=== PATIENT | female | born 1985 | race Caucasian/White ===

== ENCOUNTER 2025-01-13 17:10 | Emergency (ER) | payer OTHER, SELFPAY ==
--- NOTE | ~2025-01-13 | XR_ITS ---
XR finger 2nd RT min 2V 01/13/2025 17:32 INDICATION: Right second finger pain PROCEDURE: 3 views right second finger COMPARISON: No prior studies for comparison. FINDINGS: Fracture, dislocation or subluxation is not identified. The soft tissues appear within normal limits. No foreign bodies are identified. IMPRESSION: 1: NO ACUTE BONE OR JOINT ABNORMALITY IDENTIFIED. Reviewed, dictated and finalized at location O.
--- OUTSIDE RECORDS SUMMARY | 2025-01-13 17:13 | XMS_ITS | Clinical Summary ---
Author Organization [facility] [place] Address [address] [place] [address] Phone Care Team Providers Care Backer Up Name Role Phone Harry Landaverde MD Primary Care Provider [phone] Medications celecoxib (CeleBREX) 200 MG Capsule TAKE 1 CAPSULE BY MOUTH DAILY WITH FOOD 11/17/2023 Active fluconazole (DIFLUCAN) 150 MG Tablet Take 150 mg by mouth once. 01/21/2024 Active triamcinolone (KENALOG) 0.1 % Cream Apply to rash area bid for 10 days 15 g 10/14/2024 Active escitalopram (LEXAPRO) 10 MG Tablet Take 1 Tablet by mouth daily. 30 Tablet 3 11/19/2024 Active hydrOXYzine (ATARAX) 10 MG Tablet Take 1 Tablet by mouth every 8 hours as needed for Anxiety. 30 Tablet 11/19/2024 Active phentermine 30 MG CapsuleIndicati ons:Obesity (BMI 30-39.9) Take 1 Capsule by mouth daily. 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 Carpal tunnel syndrome, right 03/29/2023 Right elbow pain 11/30/2022 Generalized anxiety disorder 07/20/2022 Encounters Date Type Department Care Team Description 11/19/2024 11:00 AM CDT Office Visit [facility] Medical Group - Internal Medicine - [place] [address] [place] [address] Harry Landaverde MD Obesity (BMI 30-39.9) (Primary Dx); Other hyperlipidemia; Generalized anxiety disorder Discharge Disposition: Discharged to home or Selfcare 11/19/2024 Travel 10/22/2024 1:02 PM CDT - 10/22/2024 11:59 PM CDT Hospital Encounter [facility] Ultrasound [address] [place] [address] Harry Landaverde MD Discharge Disposition: Discharged to home or Selfcare 10/22/2024 Travel 10/22/2024 Results Follow-Up [facility] Internal Medicine [facility] [address] [place] [address] Ramona Wallace PAC HEMOGLOBIN A1C W/ ESTIMATED GLUCOSE, THYROID STIMULATING HORMONE (TSH), THYROXINE (T4) FREE, Additional followed-up results: 3 10/14/2024 11:00 AM CDT Office Visit [facility] Internal Medicine [facility] [address] [place] [address] Harry Landaverde MD Obesity (BMI 30-39.9) (Primary Dx); Health maintenance examination (Adult); Hyperglycemia; Goiter; Rash Discharge Disposition: Discharged to home or Selfcare 10/14/2024 Travel from Last 3 Months Family History Medical History Relation Name Comments No Known Problems Brother Cancer Father No Known Problems Mother Relation Name Status Comments Brother Alive Father Mother Alive Social History Tobacco Use Types Packs/Day Years Used Date Smoking Tobacco: Every Day Cigarettes Passive Smoke Exposure: Current Smokeless Tobacco: Never Tobacco Cessation:Ready to Q uit: No; Counseling Given: Yes Alcohol Use Standard Drinks/Week Comments Not Currently 0 (1 standard drink = 0.6 oz pur e alcohol) [facility] Utilities Answer Date Recorded In the past 12 months has [employer], gas, oil, or water [employer] [place] threatened to shut off services in your home? No 07/19/2023 Social Connection and Isolation Panel Answer Date Recorded In a typical week, how many times do you talk on the phone with family, friends, or neighbors? More than three times a week 07/19/2023 How often do you get togethe r with friends or relatives? More than three times a week 07/19/2023 How often do you attend chur ch or orthodox services? Never 07/19/2023 Do you belong to any clubs o r organizations such as pentecostal groups, unions, fraternal or athletic groups, or school groups? No 07/19/2023 How often do you attend meet ings of the clubs or organizations you belong to? Never 07/19/2023 Are you , , di vorced, , never , or living with a partner? Living with partner 07/19/2023 AUDIT-C Answer Date Recorded Q1: How often do you have a drink containing alcohol? Never 07/19/2023 Q2: How many drinks containi ng alcohol do you have on a typical day when you are drinking? Patient does not drink Q3: How often do you have si x or more drinks on one occasion? Never 07/19/2023 Overall Financial Resource Strain (CARDIA) Answe r Date Recorded How hard is it for you to pa y for the very basics like food, housing, medical care, and heating? Not hard at all 07/19/2023 PHQ-2 Answer Date Recorded Total Score - Questions 1-9 0 0607/2024 [facility] - Occupational Stress Questionnaire Answer Date Recorded Do you feel stress - tense, restless, nervous, or anxious, or unable to sleep at night because your mind is troubled all the time - these days? Not at all 07/19/2023 Exercise Vital Sign Answer Date Recorde d On average, how many days pe r week do you engage in moderate to strenuous exercise (like a brisk walk)? 0 days 07/19/2023 On average, how many minutes do you engage in exercise at this level? 0 min 07/19/2023 Hunger Vital Sign Answer Date Recorded Within the past 12 months, y ou worried that your food would run out before you got the money to buy more. Never true 07/19/19 24 Within the past 12 months, t he food you bought just didn't last and you didn't have money to get more. Never true 07/19/2023 PRAPARE - Transportation Answer Date Re corded In the past 12 months, has l ack of transportation kept you from medical appointments or from getting medications? No 11/2023 In the past 12 months, has l ack of transportation kept you from meetings, work, or from getting things needed for daily living? No 07/19/2023 Housing Stability Vital Sign Answer Odell e Recorded In the last 12 months, was t here a time when you were not able to pay the mortgage or rent on time? No 07/19/2023 In the last 12 months, how many places have you lived? 3 07/19/2023 In the last 12 months, was t here a time when you did not have a steady place to sleep or slept in a residential (including now)? No 07/19/2023 Education Answer Date Recorded What is the highest level of school you have completed or the highest degree you have received? 10th grade 07/20/2022 Sexually Active Control Partners Comments Not Currently Comments No Sex and Gender Information Value Date Recorded Sex Assigned at Female 04/25/2023 2:10 PM CHISELER HEAD Legal Sex Female 4:27 PM CHISELER HEAD Gender Identity Female 04/25/2023 2:10 PM CHISELER HEAD Sexual Orientation Choose not to disclose 2022 2:10 PM CHISELER HEAD Last Filed Vital Signs Vital Sign Reading Time Taken Comments Blood Pressure 116/68 11/19/2024 10:55 AM CDT Pulse 90 11/19/2024 10:55 AM CDT Temperature 36.7 C (98.1 F) 11/19/2024 10:55 AM CDT Respiratory Rate 12 02/14/2024 8:13 AM CDT Oxygen Saturation 97% 11/19/2024 10:55 AM CDT Inhaled Oxygen Concentration - - Weight 74.4 kg (164 lb) 11/19/2024 10:55 AM CDT Height 154.9 cm (5' 1) 11/19/2024 10:55 AM CDT Body Mass Index 30.99 11/19/2024 10:55 AM CDT Plan of Treatment Health Maintenance Due Date Last Done Comments Hepatitis C Virus (HCV) Screening 1985 TdaP Immunization 1983 Hepatitis B Immunization (1 of 3 - 19+ 3-dose series) 09/01/2002 Human Papillomavirus (HPV) Immunization (1 - 3-dose SCDM series) 09/01/2010 SARS-COV-2 Immunization ( season) 2024 08/27/2020, 07/30/2020 Mammogram 04/15/2025 04/15/2024 Pap Smear 01/17/2027 01/18/2024 Cervical Cancer Screening (CCS) 01/17/2029 HPV/Cotest 01/17/2029 01/18/2024 Respiratory Syncytial Virus (RSV) Immunization (Adult) (1 - 1-dose 75+ series) 09/01/2058 Discussion re Starting/Frequency of Mammograms Completed 04/15/2024 Influenza Immunization Discontinued Meningococcal Immunization (ACWY) Aged Out No longer eligible based on patient's age to complete this topic Pneumococcal Immunization Combined Discontinued Rotavirus Immunization Aged Out No lo nger eligible based on patient's age to complete this topic Interventions Community Resource Recommendations Community Resource Services Recommended Domains Addressed Status Status Reason/Outcome Date/Time [facility] Nursing Assistant Housing, Public Housing, Residential Housing Housing Stability Recommended 03/26/2024 10:39 PM CHISELER HEAD from Last 12 Months Procedures Procedure Name Priority Date/Time Associated Diagnosis Comments US THYROID Routine 10/22/2024 1:17 PM CDT Goiter CMP (COMPREHENSIVE METABOLIC PANEL) Routine 10/15/2024 Health maintenance examination (Adult) LIPID PANEL Routine 10/15/2024 Health maintenance examination (Adult) THYROXINE (T4) FREE Routine 10/15/2024 Goiter THYROID STIMULATING HORMONE (TSH) Routine 10/15/2024 Goiter HEMOGLOBIN A1C W/ ESTIMATED GLUCOSE Routine 10/15/2024 Hyperglycemia ANTONIA SCREENING BILATERAL DIGITAL W CAD W OTIS Routine 04/15/2024 12:31 PM CHISELER HEAD Encounter for screening mammogram for malignant neoplasm of breast HUMAN PAPILLOMA VIRUS (HPV) Routine 01/18/2024 2:22 PM CDT Screening for malignant neoplasm of cervix PATHOLOGY CYTOLOGY VESSEL ORDINARY SEAMAN Routine 01/18/2024 2:22 PM CDT Screening for malignant neoplasm of cervix from Last 3 Months or Most Recently Relevant to Health Maintenance Results * US THYROID (10/22/2024 1:17 PM CDT) Anatomical Region Laterality Modality BODY N/A Ultrasound 11/03/2024 11:3 1 AM CDT Impressions 11/03/2024 11:33 AM CDT IMPRESSION: Unremarkable appearance of the thyroid. No concerning thyroid nodule. ACR TI-RADS Risk Category: Not applicable. REFERENCE: According to the ACR Thyroid Imaging, Reporting and Data System (TI-RADS): White Paper of the ACR TI-RADS Committee Sep, 2016 recommendations regarding the management of thyroid nodules are as follows: 1. TI-RADS 1: Risk of malignancy <2%, no FNA or follow up required. 2. TI-RADS 2: Risk of malignancy <2%, no FNA or follow up required. 3. TI-RADS 3: Risk of malignancy 2%-5%. Nodules 1.5 cm or greater follow up at 1, 3 and 5 years recommended, for nodules 2.5 cm or greater FNA recommended. 4. TI-RADS 4: Risk of malignancy 5%-20% Nodules 1.0 cm or greater follow up at 1, 2, 3 and 5 years recommended, for nodules 1.5 cm or greater FNA recommended 5. TI-RADS 5: Risk of malignancy >20%. Nodules 0.5 cm or greater annual follow up for 5 years recommended, for nodules 1.0 cm or greater FNA recommended. The ACR TI-RADS committee recommends targeting no more than two nodules for FNA. If three or more nodules meet criteria for FNA, the two with the most suspicious appearance based on ACR TI-RADS points should be sampled. Narrative 11/03/2024 11:33 AM CDT EXAM DESCRIPTION: US THYROID REASON FOR STUDY: goiter TECHNIQUE: Ultrasound of the thyroid was performed with grayscale and color doppler. COMPARISON: None. FINDINGS: RIGHT: Measures 4.8 x 1.5 x 1.9 cm. Normal echotexture. Small subcentimeter cysts. No discrete measurable nodule. LEFT: Measures 4.0 x 1.2 x 1.6 cm. Normal echotexture. No discrete measurable nodule. ISTHMUS: Measures 0.2 cm in AP dimension. Normal echotexture. VASCULARITY: Normal. OTHER: No other significant finding. THIS IS AN ELECTRONICALLY VERIFIED FINAL REPORT 11/03/2024 11:31 AM - Electronically signed by Mandeep Fernandez M.D. NS: NS Report ID: [id number] Reading Location: [id number] Procedure Note Mandeep Fernandez MD - 11/03/2024 EXAM DESCRIPTION: US THYROID REASON FOR STUDY: goiter TECHNIQUE: Ultrasound of the thyroid was performed with grayscale and color doppler. COMPARISON: None. FINDINGS: RIGHT: Measures 4.8 x 1.5 x 1.9 cm. Normal echotexture. Small subcentimeter cysts. No discrete measurable nodule. LEFT: Measures 4.0 x 1.2 x 1.6 cm. Normal echotexture. No discrete measurable nodule. ISTHMUS: Measures 0.2 cm in AP dimension. Normal echotexture. VASCULARITY: Normal. OTHER: No other significant finding. THIS IS AN ELECTRONICALLY VERIFIED FINAL REPORT 11/03/2024 11:31 AM - Electronically signed by Mandeep Fernandez M.D. NS: NS Report ID: [id number] Reading Location: [id number] IMPRESSION: Unremarkable appearance of the thyroid. No concerning thyroid nodule. ACR TI-RADS Risk Category: Not applicable. REFERENCE: According to the ACR Thyroid Imaging, Reporting and Data System (TI-RADS): White Paper of the ACR TI-RADS Committee Sep, 2016 recommendations regarding the management of thyroid nodules are as follows: 1. TI-RADS 1: Risk of malignancy <2%, no FNA or follow up required. 2. TI-RADS 2: Risk of malignancy <2%, no FNA or follow up required. 3. TI-RADS 3: Risk of malignancy 2%-5%. Nodules 1.5 cm or greater follow up at 1, 3 and 5 years recommended, for nodules 2.5 cm or greater FNA recommended. 4. TI-RADS 4: Risk of malignancy 5%-20% Nodules 1.0 cm or greater follow up at 1, 2, 3 and 5 years recommended, for nodules 1.5 cm or greater FNA recommended 5. TI-RADS 5: Risk of malignancy >20%. Nodules 0.5 cm or greater annual follow up for 5 years recommended, for nodules 1.0 cm or greater FNA recommended. The ACR TI-RADS committee recommends targeting no more than two nodules for FNA. If three or more nodules meet criteria for FNA, the two with the most suspicious appearance based on ACR TI-RADS points should be sampled. us Harry Landaverde MD IMG US ORDERABLES Final Res ult * HEMOGLOBIN A1C W/ ESTIMATED GLUCOSE (10/15/2024) Blood 10/15/2024 Result [facility] us Harry Landaverde MD CHEMISTRY ORDERABLES Final Result * THYROXINE (T4) FREE (10/15/2024) Blood 10/15/2024 Result [facility] us Harry Landaverde MD CHEMISTRY ORDERABLES Final Result * THYROID STIMULATING HORMONE (TSH) (10/15/2024) Blood 10/15/2024 Result [facility] us Harry Landaverde MD CHEMISTRY ORDERABLES Final Result * LIPID PANEL (10/15/2024) Blood 10/15/2024 Result [facility] us Harry Landaverde MD CHEMISTRY ORDERABLES Final Result * CMP (COMPREHENSIVE METABOLIC PANEL) (10/15/2024) Blood 10/15/2024 us Harry Landaverde MD CHEMISTRY ORDERABLES Final Result * ANTONIA SCREENING BILATERAL DIGITAL W CAD W OTIS (04/15/2024 12:31 PM CHISELER HEAD) Anatomical Region Laterality Modality breast Bilateral Mammography 04/15/2024 12:3 2 PM CHISELER HEAD Narrative 04/16/2024 2:04 PM CHISELER HEAD - ANTONIA SCREENING BILATERAL DIGITAL W CAD W OTIS BILATERAL DIGITAL SCREENING MAMMOGRAM 3D/2D WITH CAD WITH MEDIOLATERAL OBLIQUE CRANIOCAUDAL: 04/15/2024 The study was acquired using digital technology and interpreted from soft copy. Current study was also evaluated with [employer] version 7.2. 2D digital mammographic views, as well as 3D digital tomosynthesis were performed in the CC and MLO projections. CLINICAL: Baseline screening. Post breast imaging, patient reported a chronic right knot for a couple years located at lateral ribs. This area seemed to be out of the field of view of mammography. Patient states her physician is aware of this knot. No personal history of breast cancer. Maternal aunt had breast cancer. Possible breast cancer of mother. COMPARISONS: No prior exams were available for comparison. BREAST TISSUE:The breasts are heterogeneously dense, which may obscure small masses. FINDINGS: There are benign calcifications in both breasts. No significant masses, calcifications, or other findings are seen in either breast. IMPRESSION: BENIGN There is no mammographic evidence of malignancy. A 1 year screening mammogram is recommended. A letter will be sent to the patient with these results. The patient will be entered into a reminder system with a target due date of 1 year for her next screening exam. Electronically signed by: Madhuri funez/carmelo:04/15/2024 22:19:27 Direct Support Staff Member(s): RT Ana Luisa(R)(M), [facility] letter sent: Normal Exam Reading location: [facility] Mammogram BI-RADS: Category 2: Benign Procedure Note Madhuri Mckeon MD - 04/16/2024 - ANTONIA SCREENING BILATERAL DIGITAL W CAD W OTIS BILATERAL DIGITAL SCREENING MAMMOGRAM 3D/2D WITH CAD WITH MEDIOLATERAL OBLIQUE CRANIOCAUDAL: 04/15/2024 The study was acquired using digital technology and interpreted from soft copy. Current study was also evaluated with IC[employer] version 7.2. 2D digital mammographic views, as well as 3D digital tomosynthesis were performed in the CC and MLO projections. CLINICAL: Baseline screening. Post breast imaging, patient reported a chronic right knot for a couple years located at lateral ribs. This area seemed to be out of the field of view of mammography. Patient states her physician is aware of this knot. No personal history of breast cancer. Maternal aunt had breast cancer. Possible breast cancer of mother. COMPARISONS: No prior exams were available for comparison. BREAST TISSUE:The breasts are heterogeneously dense, which may obscure small masses. FINDINGS: There are benign calcifications in both breasts. No significant masses, calcifications, or other findings are seen in either breast. IMPRESSION: BENIGN There is no mammographic evidence of malignancy. A 1 year screening mammogram is recommended. A letter will be sent to the patient with these results. The patient will be entered into a reminder system with a target due date of 1 year for her next screening exam. Electronically signed by: Madhuri funez/carmelo:04/15/2024 22:19:27 Direct Support Staff Member(s): RT Ana Luisa(R)(M), [facility] letter sent: Normal Exam Reading location: [facility] Mammogram BI-RADS: Category 2: Benign us Carlotta Mendenhall APRN, [facility]MO IMG MAMMO ORDERABLES Fin al Result * PATHOLOGY CYTOLOGY VESSEL ORDINARY SEAMAN (01/18/2024 2:22 PM CDT) SPECIMEN ADEQUACY Satisfactory for evaluation. Endocervical/transf ormation zone component is present. 01/23/2024 3:00 PM CDT [facility] DESCRIPTIVE DIAGNOSIS NEGATIVE FOR INTRAEPITHELIAL LESIONS OR MALIGNANCY. 01/23/2024 3:00 PM CDT [facility] at 1500 CDT Automated Examination Analysis of this sample has been assisted by an automated imaging and review system ([employer] System, [employer], [place], [place]). This case is further evaluated and finalized by a road train driver and/or pathologist. 01/23/2024 3:00 PM CDT [facility] Disclaimer The PAP smear is a screening test designed to detect cancerous or precancerous cells of the uterine cervix. It is one of the best means available for detection of cervical cancer but still carries an inherent false-negative rate. The consequences of a false-negative PAP result can be minimized by adhering to current screening guidelines. The following are general guidelines recommended by the ACS, ASCP, ASCCP, and ACOG: PAP testing is recommended every three years for women 21-29, Co-Testing, a PAP test in conjunction with an HPV (Human Papillomavirus) test for women ages 30-65, and no PAP or HPV testing for women under the age of 21 or older than 65 unless clinically indicated. 01/23/2024 3:00 PM CDT [facility] Case Report Gynecologic Cytology Report Case: [id number] Authorizing Provider: Carlotta Mendenhall APRN, CNP Collected: 01/18/2024 02:22 PM Ordering Location: [facility] - Received: 01/18/2024 02:22 PM Internal Medicine [facility] Screen: Lucille Rivera Specimen: TP Screen, Cervix/Endocervix 01/23/2024 3:00 PM CDT [facility] Other CERVIX UTERI STRUCTURE / Unknown Non-Phlebotomy Collection / Unknown 01/18/2024 2:22 PM CDT 01/18/2024 2:22 PM CDT us Carlotta Mendenhall APRN, CNP PATHOLOGY/CYTOLOGY ORDER YOU Final Result [facility] [address] [place] [address], * HUMAN PAPILLOMA VIRUS (HPV) (01/18/2024 2:22 PM CDT) HPV TYPE 16 NEGATIVE NEGATIVE 01/21/2024 7:47 PM CDT [facility] Comment: A negative high-risk HPV result does not exclude the possibility of future cytologic HSIL or underlying CIN2-3 or cancer. The presence of PCR inhibitors may cause false negative or invalid results. If concentrations of whole blood in the sample exceed 10% (dark red or brown coloration) in PreservCyt solution, there is a likelihood of obtaining a false-negative result. HPV TYPE 18 NEGATIVE NEGATIVE 01/21/2024 7:47 PM CDT [facility] Comment: A negative high-risk HPV result does not exclude the possibility of future cytologic HSIL or underlying CIN2-3 or cancer. The presence of PCR inhibitors may cause false negative or invalid results. If concentrations of whole blood in the sample exceed 10% (dark red or brown coloration) in PreservCyt solution, there is a likelihood of obtaining a false-negative result. HPV OTHER HIGH RISK TYPES, PCR NEGATIVE NEGATIVE 01/21/2024 7:47 PM CDT [facility] Comment: The following Other High Risk types were not detected: 31, 33, 35, 39, 45, 51, 52, 56, 58, 59, 66, and 68. A negative high-risk HPV result does not exclude the possibility of future cytologic HSIL or underlying CIN2-3 or cancer. The presence of PCR inhibitors may cause false negative or invalid results. If concentrations of whole blood in the sample exceed 10% (dark red or brown coloration) in PreservCyt solution, there is a likelihood of obtaining a false-negative result. HPV ORDER BE USED FOR SCREENING OR DIAGNOSTIC SCREENING 01/21/2024 7:47 PM CDT [facility] Other Non-Phlebotomy Collection / Unknown 01/18/2024 2:22 PM CDT 01/18/2024 2:22 PM CDT Narrative [facility] - 01/21/2024 7:47 PM CDT This test was performed using LUCILLE 5800 Real Time PCR. us Carlotta Mendenhall FELTMAKER, HOIST WORKER LAB SEND OUTS Final Re sult [facility] [address] [place] [address], [facility] [place] [address] from Last 3 Months or Most Recently Relevant to Health Maintenance Insurance Care Teams Backer Up Relationship Specialty Start Date End Date Harry Landaverde MD PCP - General Internal Medicine 07/20/22
--- OUTSIDE RECORDS SUMMARY | 2025-01-13 17:13 | XMS_ITS | Clinical Summary ---
Author Organization [facility] [employer] Address [address] [place] [address] Care Team Providers Care Filter Press Tender Name Role Phone Lionel Perez MD Primary Care Provider [phone] Source Comments [facility],non-owned Affiliates and Associated Physician Practices is amultiple site organization consisting of ambulatory clinics and hospital sitesin [place], [place], [place] and [place]. This disclosure is being madepursuant to the Care Everywhere program and may not contain all information available regarding this patient. Last updated 18.[facility] [employer] Social History Tobacco Use Types Packs/Day Years Used Date Smoking Tobacco: Never Assessed Comments Unknown Sex and Gender Information Value Date Recorded Sex Assigned at Not on file Legal Sex Female 12:18 PM LURER Gender Identity Not on file Sexual Orientation Not on file Plan of Treatment Health Maintenance Due Date Last Done Comments LIPID TESTING 1985 MAMMOGRAM 1985 HIV SCREENING 09/01/1998 HEPATITIS C SCREENING 08/28/2001 DTAP/TDAP/TD VACCINES (1 - Tdap) 09/01/2002 HEPATITIS B VACCINE (1 of 3 - 19+ 3-dose series) 09/01/2002 HPV VACCINE (1 - 3-dose SCDM series) 09/01/2010 DEPRESSION SCREENING 05/14/2024 COVID-19 VACCINE (1 - 2023-2 5 season) 2025 INFLUENZA VACCINE (#1) 2025 ZOSTER VACCINE (1 of 2) 09/01/2033 HIB VACCINE Aged Out No longer eligi ble based on patient's age to complete this topic MENINGOCOCCAL (Group B) VACC INE SHARED DECISION-MAKING Aged Out No longer eligibl e based on patient's age to complete this topic MENINGOCOCCAL GROUPS A/C/Y/W VACCINE Aged Out No longer eligible b ased on patient's age to complete this topic PNEUMOCOCCAL VACCINE Aged Out No long er eligible based on patient's age to complete this topic Care Teams Filter Press Tender Relationship Specialty Start Date End Date iLonel Perez MD [address] [place] [address] Dr Bernardo [address] [place] [id number] PCP - General 02/08/11
--- OUTSIDE RECORDS SUMMARY | 2025-01-13 17:13 | XMS_ITS | Encounter Summary ---
Author Organization [facility] Address [address] [place] [place] [address] Phone Care Team Providers Care Paint Roller Covermaker Name Role Phone Harry Landaverde MD Primary Care Provider [phone] Reason for Referral * Radiology Services (Routine) - Closed Specialty Diagnoses / Procedures Referred By Sherry rdz Referred To Contact Radiology Diagnoses Pre-op testing Procedures XR CHEST 2 VIEWS Navjot Owens MD [address] [place] [address] Phone: tel: fax: Referral ID Status Reason Start Date Expiration Date Visits Re quested Visits Authorized [id number] Closed 04/25/2023 1 1 UCK DIVER Encounter Details Date Type Department Care Team (Latest Contact Info) Description 04/25/2023 Transcribe Orders [facility] Preop/Pacu II 1 [place] [id number] Navjot Owens MD [address] [place] [id number] Pre-op testing (Primary Dx) Social History Tobacco Use Types Packs/Day Years Used Date Smoking Tobacco: Every Day Cigarettes Passive Smoke Exposure: Current Smokeless Tobacco: Never Alcohol Use Standard Drinks/Week Comments Not Currently 0 (1 standard drink = 0.6 oz pur e alcohol) PHQ-2 Answer Date Recorded Total Score - Questions 1-9 0 02/12 Education Answer Date Recorded What is the highest level of school you have completed or the highest degree you have received? 10th grade 07/20/2022 Sexually Active Control Partners Comments Not Currently Comments No Sex and Gender Information Value Date Recorded Sex Assigned at Female 04/25/2023 2:10 PM GEODUCK DIVER Legal Sex Female 4:27 PM GEODUCK DIVER Gender Identity Female 04/25/2023 2:10 PM GEODUCK DIVER Sexual Orientation Choose not to disclose 2022 2:10 PM GEODUCK DIVER documented as of this encounter Plan of Treatment Not on file documented as of this encounter Results * XR CHEST 2 VIEWS (04/26/2023 1:21 PM GEODUCK DIVER) Anatomical Region Laterality Modality Chest N/A Digital Radiogra phy 04/27/2023 12:4 4 PM GEODUCK DIVER Impressions 04/27/2023 12:46 PM GEODUCK DIVER IMPRESSION: No acute cardiopulmonary abnormality. Narrative 04/27/2023 12:46 PM GEODUCK DIVER EXAM DESCRIPTION: XR CHEST 2 VIEWS REASON FOR STUDY: pre op ulnar nerve on rt wrist TECHNIQUE: Frontal and lateral radiographic view(s) of the chest. COMPARISON: None. FINDINGS: LUNGS: No focal opacity, pleural effusion, or pneumothorax. HEART/MEDIASTINUM: Cardiac silhouette normal in size. Mediastinal and hilar contours appear normal. LINES/TUBES: None. BONES: No acute osseous abnormality. THIS IS AN ELECTRONICALLY VERIFIED FINAL REPORT 04/27/2023 12:44 PM - Electronically signed by Hunter Cloud M.D. CH: Report ID: [id number] Reading Location: [id number] Procedure Note Hunter Cloud Jr., MD - 04/27/2023 EXAM DESCRIPTION: XR CHEST 2 VIEWS REASON FOR STUDY: pre op ulnar nerve on rt wrist TECHNIQUE: Frontal and lateral radiographic view(s) of the chest. COMPARISON: None. FINDINGS: LUNGS: No focal opacity, pleural effusion, or pneumothorax. HEART/MEDIASTINUM: Cardiac silhouette normal in size. Mediastinal and hilar contours appear normal. LINES/TUBES: None. BONES: No acute osseous abnormality. THIS IS AN ELECTRONICALLY VERIFIED FINAL REPORT 04/27/2023 12:44 PM - Electronically signed by Hunter Cloud M.D. CH: Report ID: [id number] Reading Location: [place] [address] IMPRESSION: No acute cardiopulmonary abnormality. Navjot Owens MD IMG DIAGNOSTIC ORDERABLES Final Result * (ABNORMAL) CMP (COMPREHENSIVE METABOLIC PANEL) (04/26/2023 12:47 PM GEODUCK DIVER) SODIUM 136 136 - 145 mmol/L 04/26/2023 1:42 PM [facility] POTASSIUM 3.9 3.5 - 5.1 mmol/L 04/26/2023 1:42 PM [facility] CHLORIDE 104 98 - 107 mmol/L 04/26/2023 1:42 PM [facility] CO2, VENOUS 24 22 - 30 mmol/L 04/26/2023 1:42 PM [facility] ANION GAP 11.9 <18.0 mmol/L 04/26/2023 1:42 PM [facility] GLUCOSE 103(H) 70 - 99 mg/dL 04/26/2023 1:42 PM [facility] BUN 9 5 - 18 mg/dL 04/26/2023 1:42 PM [facility] CREATININE, BLOOD 0.68 0.60 - 1.00 mg/dL 04/26/2023 1:42 PM [facility] BUN/CREATININE RATIO 13 12 - 20 ratio 04/26/2023 1:42 PM [facility] TOTAL PROTEIN 7.1 6.3 - 8.2 g/dL 04/26/2023 1:42 PM [facility] ALBUMIN 4.2 3.5 - 5.0 g/dL 04/26/2023 1:42 PM [facility] A/G RATIO 1.4 1.0 - 2.2 04/26/2023 1:42 PM [facility] CALCIUM 9.0 8.7 - 10.5 mg/dL 04/26/2023 1:42 PM GEODUCK DIVER [facility] T BILI 0.4 0.2 - 1.2 mg/dL 04/26/2023 1:42 PM GEODUCK DIVER [facility] SGOT (AST) 15 5 - 34 U/L 04/26/2023 1:42 PM GEODUCK DIVER [facility] SGPT (ALT) 16 0 - 55 U/L 04/26/2023 1:42 PM GEODUCK DIVER [facility] ALKALINE PHOSPHATASE 62 40 - 150 U/L 04/26/2023 1:42 PM GEODUCK DIVER [facility] IS THE PATIENT REQUIRED TO BE FASTING? No 04/26/2023 1:42 PM GEODUCK DIVER [facility] GFR, ESTIMATED >60 >=60 04/26/2023 1:42 PM [facility] Comment: Creatinine Clearance is the preferred criteria for selecting drug dose adjustments in renally impaired patients. The GFR is provided as additional pertinent clinical information. GFR is reported in mL/min/1.73 sq m. Calculation based on the Chronic Kidney Disease Epidemiology Collaboration (CKD- EPI) equation refit without adjustment for race. GFR, EST. >60 >=60 023 1:42 PM GEODUCK DIVER [facility] GFR, EST. NONAFRICAN >60 >=60 04/26/2023 1:42 PM [facility] Blood Venipuncture / Unknown 04/26/2023 12:47 PM GEODUCK DIVER 04/26/2023 1:22 PM GEODUCK DIVER us Navjot Owens MD CHEMISTRY ORDERABLES Final Resul t [facility] [place] [address] documented in this encounter Visit Diagnoses Diagnosis Pre-op testing- Primary Preoperative examination, unspecified Pre-op testing Preoperative examination, unspecified documented in this encounter Additional Health Concerns Assessment Noted Time PHQ-9 Depression Total Score: 0 10/26/20 23 1:39 PM CDT documented as of this encounter Care Teams Paint Roller Covermaker Relationship Specialty Start Date End Date Harry Landaverde MD PCP - General Internal Medicine 07/20/22 documented as of this encounter
--- NOTE | 2025-01-13 17:17 | ED.UPPEXIN ---
HPI - Extremity Injury (Upper) General Chief Complaint: Extremity Injury, Upper Stated Complaint: right finger injury Time Seen by Provider: 01/13/25 17:20 Source: patient Mode of arrival: ambulatory Limitations: no limitations History of Present Illness HPI narrative: Светлана is a 39-year-old female patient presenting to the clinic today with complaints of right index finger injury. She reports she injured it on January 01 when she tripped in the kitchen and hit her finger on the cabinet. Had bruising and swelling over the PIP joint. Has been wearing a splint. States the area is still sore so she wanted to have it looked at to see if it was broken. Is able to flex and extend the finger with very mild pain with full flexion. Related Data Home Medications ?Medication ?Instructions ?Recorded ?Confirmed ?Last Taken ?Type celecoxib 200 mg capsule mg 01/13/25 Unknown History escitalopram oxalate 10 mg tablet mg 01/13/25 Unknown History hydroxyzine HCl 10 mg tablet mg 01/13/25 Unknown History Allergies Allergy/AdvReac Type Severity Reaction Status Date / Time No Known Allergies Allergy Unverified 11/01/15 17:39 Review of Systems Review of Systems: Pertinent positives per HPI. Patient denies any fever, chills, rash, headache, visual changes, dizziness, cough, runny nose, sore throat, shortness of breath, chest pain, palpitations, nausea, vomiting, diarrhea, constipation, abdominal pain, or any urinary issues. PMFSH Comments At the time of my signature, I reviewed and agree with the nursing past medical, surgical, social, and family history. There is no relevant family history pertinent to the patient complaint. Exam Narrative: General: Well-developed, well nourished, in no apparent distress Head: Normocephalic, atraumatic. Cardio: Regular rate and rhythm, s1 and s2 normal, no murmur appreciated. Resp: Clear to auscultation bilaterally, no rhonchi, rales, wheezing or rubs. Musculoskeletal: No deformity, mild bruising/swelling noted to the right PIP joint of the 2nd finger, mild tender to palpation, mild pain with full flexion of the finger, grossly normal range of motion, muscle strength strong and equal, peripheral pulse strong, no edema, no cyanosis, normal gait and station Course Course Emergency Course: Portions of this record may have been created with voice recognition software. Level of Care: [facility] Care Visit Vital Signs Vital signs: Vital signs reviewed MDM - Extremity Injury (Upper) MDM Narrative Medical decision making narrative: At the time of visit patient is resting comfortably on the exam table. Patient appears to be nontoxic. complaints of right index finger injury. She reports she injured it on January 01 when she tripped in the kitchen and hit her finger on the cabinet. Had bruising and swelling over the PIP joint. Has been wearing a splint. States the area is still sore so she wanted to have it looked at to see if it was broken. Is able to flex and extend the finger with very mild pain with full flexion. X-ray of the right index finger was ordered. Diagnostics: X-ray of the right index finger was performed. No acute fracture or malalignment. Plan: I suspect patient has a finger sprain. Supportive measures were discussed with the patient and they voiced understanding discharge instructions and agrees to treatment plan. Return precautions reviewed Differential Diagnosis Differential diagnosis: Likely finger sprain, dislocation of finger and other (Finger fracture, contusion) Imaging Data Radiologist's impression: ITS Impressions Finger X-Ray 01/13/25 17:35 IMPRESSION: 1: NO ACUTE BONE OR JOINT ABNORMALITY IDENTIFIED. Discharge Plan Discharge Clinical Impression: Finger sprain Qualifiers: Encounter type: initial encounter Finger: index finger Sprain of finger site: interphalangeal joint Laterality: right Qualified Code(s): S63.630A - Sprain of interphalangeal joint of right index finger, initial encounter Patient Disposition: Home Condition: Stable Instructions: Antibiotic Form, Finger Sprain (ED) Additional Instructions: X-ray of the right index finger is negative for any sign of fracture or malalignment. Rest, ice, elevate, and wear finger splint as directed Tylenol/motrin for pain as discussed. Follow up with your PCP if symptoms persist more than 1 week. Patient Language: Niuean Prescriptions: No Action celecoxib 200 mg capsule hydroxyzine HCl 10 mg tablet escitalopram oxalate 10 mg tablet Follow-up/Referrals: Akhil,Harry Corado MD [Primary Care Provider, Unknown] Time of Disposition: 17:39 Quality NIHSS Nursing Documentation ED NIHSS nursing documentation: reviewed/agree
--- OUTSIDE RECORDS SUMMARY | 2025-01-13 17:17 | XMS_ITS | Encounter Summary ---
Author Organization [facility] Address [address] [place] [address] Phone Care Team Providers Care Transportation Engineering Technician Name Role Phone Harry Landaverde MD Primary Care Provider [phone] Reason for Visit * Reason Comments Medication Refill Encounter Details Date Type Department Care Team (Late st Contact Info) Description 09/15/2022 Refill [facility] Medical [facility] - Internal Medicine [facility] [address] [place] [phone] Harry Landaverde MD [address] [place] [address] Medication Refill Social History Tobacco Use Types Packs/Day Years Used Date Smoking Tobacco: Every Day Cigarettes Passive Smoke Exposure: Current Smokeless Tobacco: Never Alcohol Use Standard Drinks/Week Comments Not Currently 0 (1 standard drink = 0.6 oz pur e alcohol) PHQ-2 Answer Date Recorded Total Score - Questions 1-9 1 08/12 Education Answer Date Recorded What is the highest level of school you have completed or the highest degree you have received? 10th grade 07/20/2022 Sexually Active Control Partners Comments Not Currently Comments No Sex and Gender Information Value Date Recorded Sex Assigned at Female 04/25/2023 2:10 PM FIELD LABORER Legal Sex Female 4:27 PM FIELD LABORER Gender Identity Female 04/25/2023 2:10 PM FIELD LABORER Sexual Orientation Choose not to disclose 2022 2:10 PM FIELD LABORER COVID-19 Exposure Response Date Recorded In the last 10 days, have yo u been in contact with someone who was confirmed or suspected to have Coronavirus/COVID-19? No / Unsure 08/24/2022 12:54 PM CDT documented as of this encounter Miscellaneous Notes * Telephone Encounter - Jen Newton RN - 09/15/2022 1:27 PM CDT Medication failed the protocol, provider to review and approve the medication order if appropriate. Requested Prescriptions Pending Prescriptions Disp Refills escitalopram (LEXAPRO) 10 MG Tablet [Pharmacy Med Name: ESCITALOPRAM 10MG TABLETS] 30 Tablet 1 Sig: Take 1 Tablet by mouth daily. SSRI (6 Month Refill Only) Protocol Failed - 09/15/2022 12:59 PM Failed - Patient has established therapy with SSRI for at least 6 months Passed - No test in the past 12 months or most recent test was negative Passed - No active on record Passed - Visit with relevant provider in past 6 months or upcoming 90 days Recent Visits Date Type Provider Dept 08/24/22 Office Visit Harry Landaverde MD [facility] 07/20/22 Office Visit Harry Landaverde MD [facility] Showing recent visits within past 182 days and meeting all other requirements Future Appointments Date Type Provider Dept 11/30/22 Appointment Harry Landaverde MD [facility] Showing future appointments within next 90 days and meeting all other requirements Passed - Has an encounter in the past 6 months with a depression, anxiety, adjustment disorder, OCD, or PTSD visit diagnosis documented in this encounter Plan of Treatment Not on file documented as of this encounter Visit Diagnoses Not on filedocumented in this encounter Additional Health Concerns Assessment Noted Time PHQ-9 Depression Total Score: 1 08/25/19 1:00 PM CDT documented as of this encounter Care Teams Transportation Engineering Technician Relationship Specialty Start Date End Date Harry Landaverde MD PCP - General Internal Medicine 07/20/22 documented as of this encounter
[2025-01-13 17:18] VITALS: BP 149/103; PULSE 93; RESP 20; TEMP 36.5; O2SAT 99
== END 2025-01-13 17:42 | disposition home or self-care (01) ==
PROVIDERS: Emergency Provider Nurse Practitioner Family; PCP Internal Medicine
DX: S63.630A Sprain of interphalangeal joint of right index finger, initial encounter (principal); W01.198A Fall on same level from slipping, tripping and stumbling with subsequent striking against other object, initial encounter; M19.90 Unspecified osteoarthritis, unspecified site; F41.9 Anxiety disorder, unspecified
CPT/HCPCS: 73140; 99213; G0463

== ENCOUNTER 2025-01-24 19:23 | Emergency (ER) | payer OTHER, SELFPAY ==
[2025-01-24 19:27] VITALS: BP 192/94; PULSE 100; RESP 20; TEMP 36.4; O2SAT 97
--- OUTSIDE RECORDS SUMMARY | 2025-01-24 19:31 | XMS_ITS | Encounter Summary ---
Author Organization [facility] Address [address] [place] [address] Phone Care Team Providers Care Cna Pct Name Role Phone Harry Landaverde MD Primary Care Provider [phone] Reason for Visit * Reason Comments Medication Refill Encounter Details Date Type Department Care Team (Late st Contact Info) Description 09/15/2022 Refill [facility] Medical Group - Internal Medicine [facility] [address] [place] [phone] Harry Landaverde MD [address] [place] [address] Medication Refill Social History Tobacco [...] Sex Assigned at Female 04/25/2023 2:10 PM TYPEWRITER ASSEMBLER Legal Sex Female 4:27 PM TYPEWRITER ASSEMBLER Gender Identity Female 04/25/2023 2:10 PM TYPEWRITER ASSEMBLER Sexual Orientation Choose not to disclose 2022 2:10 PM TYPEWRITER ASSEMBLER COVID-19 Exposure Response Date Recorded In the [...] documented as of this encounter Care Teams Cna Pct Relationship Specialty Start Date End Date Harry Landaverde MD PCP - General Internal Medicine 07/20/22 documented as of this encounter
--- OUTSIDE RECORDS SUMMARY | 2025-01-24 19:31 | XMS_ITS | Encounter Summary ---
Author Organization [facility] Address [address] [place] [address] Phone Care Team Providers Care Pizza Driver Name Role Phone Harry Landaverde MD Primary Care Provider [phone] Reason for Referral * Radiology Services (Routine) - Closed Specialty Diagnoses / Procedures Referred By Sherry rdz Referred To Contact Radiology Diagnoses Pre-op testing Procedures XR CHEST 2 VIEWS Navjot Owens MD [address] [place] [address] Phone: tel: fax: Referral ID Status Reason Start Date Expiration Date Visits Re quested Visits Authorized [id number] Closed 04/25/2023 1 1 CAP Encounter Details Date Type Department Care Team (Latest Contact Info) Description 04/25/2023 Transcribe Orders [facility] Preop/Pacu II 1 [place] [phone] Navjot Owens MD [address] [place] [phone] Pre-op testing (Primary Dx) Social History Tobacco [...] Sex Assigned at Female 04/25/2023 2:10 PM SKY CAP Legal Sex Female 4:27 PM SKY CAP Gender Identity Female 04/25/2023 2:10 PM SKY CAP Sexual Orientation Choose not to disclose 2022 2:10 PM SKY CAP documented as of this encounter Plan of Treatment Not on file documented as of this encounter Results * XR CHEST 2 VIEWS (04/26/2023 1:21 PM SKY CAP) Anatomical Region Laterality Modality Chest N/A Digital Radiogra phy 04/27/2023 12:4 4 PM SKY CAP Impressions 04/27/2023 12:46 PM SKY CAP IMPRESSION: No acute cardiopulmonary abnormality. Narrative 04/27/2023 12:46 PM SKY CAP EXAM DESCRIPTION: XR CHEST 2 VIEWS REASON [...] by Hunter Cloud M.D. CH: Report ID: [id number] Reading Location: [id number] Procedure Note Hunter Cloud Jr., MD - [...] by Hunter Cloud M.D. CH: Report ID: [id number] Reading Location: [place] [id number] IMPRESSION: No acute cardiopulmonary abnormality. Navjot Owens MD IMG DIAGNOSTIC ORDERABLES Final Result * (ABNORMAL) CMP (COMPREHENSIVE METABOLIC PANEL) (04/26/2023 12:47 PM SKY CAP) SODIUM 136 136 - 145 mmol/L 04/26/2023 1:42 PM [facility] POTASSIUM 3.9 3.5 - 5.1 mmol/L 04/26/2023 1:42 PM [facility] CHLORIDE 104 98 - 107 mmol/L 04/26/2023 1:42 PM [facility] CO2, VENOUS 24 22 - 30 mmol/L 04/26/2023 1:42 PM [facility] ANION GAP 11.9 <18.0 mmol/L 04/26/2023 1:42 PM [facility] GLUCOSE 103(H) 70 - 99 mg/dL 04/26/2023 1:42 PM [facility] BUN 9 5 - 18 mg/dL 04/26/2023 1:42 PM [facility] CREATININE, BLOOD 0.68 0.60 - 1.00 mg/dL 04/26/2023 1:42 PM [facility] BUN/CREATININE RATIO 13 12 - 20 ratio 04/26/2023 1:42 PM [facility] TOTAL PROTEIN 7.1 6.3 - 8.2 g/dL 04/26/2023 1:42 PM [facility] ALBUMIN 4.2 3.5 - 5.0 g/dL 04/26/2023 1:42 PM [facility] A/G RATIO 1.4 1.0 - 2.2 04/26/2023 1:42 PM [facility] CALCIUM 9.0 8.7 - 10.5 mg/dL 04/26/2023 1:42 PM SKY CAP [facility] T BILI 0.4 0.2 - 1.2 mg/dL 04/26/2023 1:42 PM SKY CAP [facility] SGOT (AST) 15 5 - 34 U/L 04/26/2023 1:42 PM SKY CAP [facility] SGPT (ALT) 16 0 - 55 U/L 04/26/2023 1:42 PM SKY CAP [facility] ALKALINE PHOSPHATASE 62 40 - 150 U/L 04/26/2023 1:42 PM SKY CAP [facility] IS THE PATIENT REQUIRED TO BE FASTING? No 04/26/2023 1:42 PM SKY CAP [facility] GFR, ESTIMATED >60 >=60 04/26/2023 1:42 PM [facility] Comment: Creatinine Clearance is the preferred criteria for selecting drug dose adjustments in renally impaired patients. The GFR is provided as additional pertinent clinical information. GFR is reported in mL/min/1.73 sq m. Calculation based on the Chronic Kidney Disease Epidemiology Collaboration (CKD- EPI) equation refit without adjustment for race. GFR, EST. >60 >=60 023 1:42 PM SKY CAP [facility] GFR, EST. NONAFRICAN >60 >=60 04/26/2023 1:42 PM [facility] Blood Venipuncture / Unknown 04/26/2023 12:47 PM SKY CAP 04/26/2023 1:22 PM SKY CAP us Navjot Owens MD CHEMISTRY ORDERABLES Final Resul t [facility] [place] [address] documented in this encounter Visit Diagnoses Diagnosis Pre-op testing- Primary Preoperative examination, unspecified Pre-op testing Preoperative examination, unspecified documented in this encounter Additional Health Concerns Assessment Noted Time PHQ-9 Depression Total Score: 0 10/26/20 23 1:39 PM CDT documented as of this encounter Care Teams Pizza Driver Relationship Specialty Start Date End Date Harry Landaverde MD PCP - General Internal Medicine 07/20/22 documented as of this encounter
--- OUTSIDE RECORDS SUMMARY | 2025-01-24 19:31 | XMS_ITS | Clinical Summary ---
Author Organization [facility] Address [address] [place] [address] Care Team Providers Care Configuration Management Advisor Name Role Phone Lionel Perez MD Primary Care Provider [phone] Source Comments [facility],non-owned Affiliates and Associated Physician Practices is amultiple site organization consisting of ambulatory clinics and hospital sitesin [place], [place], [place] and [place]. This disclosure is being madepursuant to the Care Everywhere program and may not contain all information available regarding this patient. Last updated 18.[facility] Social History Tobacco Use Types Packs/Day Years Used Date Smoking Tobacco: Never Assessed Comments Unknown Sex and Gender Information Value Date Recorded Sex Assigned at Not on file Legal Sex Female 12:18 PM POND WORKER Gender Identity Not on file Sexual Orientation [...] age to complete this topic Care Teams Configuration Management Advisor Relationship Specialty Start Date End Date Lionel Perez MD [address] [place] [address] Dr [address] [place] [phone] PCP - General 02/08/11
--- OUTSIDE RECORDS SUMMARY | 2025-01-24 19:31 | XMS_ITS | Clinical Summary ---
Author Organization [facility] [place] Address [address] [place] [address] Phone Care Team Providers Care Parts Specialist Name Role Phone Harry Landaverde MD Primary Care Provider Medications celecoxib (CeleBREX) 200 MG Capsule TAKE [...] Description 11/19/2024 11:00 AM CDT Office Visit [facility] [place] [address] [place] [id number] Harry Landaverde MD Obesity (BMI 30-39.9) (Primary Dx); Other hyperlipidemia; Generalized anxiety disorder Discharge Disposition: Discharged to home or Selfcare 11/19/2024 Travel from Last 3 Months Family History [...] drink = 0.6 oz pur e alcohol) [facility] Utilities Answer Date Recorded In the past 12 months has [place], gas, oil, or water [employer] threatened to shut off services in your [...] often do you attend chur ch or judaism services? Never 07/19/2023 Do you belong to any clubs o r organizations such as caodaism groups, unions, fraternal or athletic groups, or [...] Recorded Total Score - Questions 1-9 0 07/2024 [facility] - Occupational Stress Questionnaire Answer Date [...] place to sleep or slept in a mcfp (including now)? No 07/19/2023 Education Answer Date Recorded What is the highest level of school you have completed or the highest degree you have received? 10th grade 07/20/2022 Sexually Active Control Partners Comments Not Currently Comments No Sex and Gender Information Value Date Recorded Sex Assigned at Female 04/25/2023 2:10 PM CASHIER HOST/HOSTESS Legal Sex Female 4:27 PM CASHIER HOST/HOSTESS Gender Identity Female 04/25/2023 2:10 PM CASHIER HOST/HOSTESS Sexual Orientation Choose not to disclose 2022 2:10 PM CASHIER HOST/HOSTESS Last Filed Vital Signs Vital Sign Reading [...] SCDM series) 09/01/2010 SARS-COV-2 Immunization ( season) 2025 08/27/2020, 07/30/2020 Mammogram 04/15/2025 04/15/2024 Pap Smear [...] Domains Addressed Status Status Reason/Outcome Date/Time [facility] Housing, Public Housing, Residential Housing Housing Stability Recommended 03/26/2024 10:39 PM CASHIER HOST/HOSTESS from Last 12 Months Procedures Procedure Name Priority Date/Time Associated Diagnosis Comments ANTONIA SCREENING BILATERAL DIGITAL W CAD W OTIS Routine 04/15/2024 12:31 PM CASHIER HOST/HOSTESS Encounter for screening mammogram for malignant neoplasm of breast HUMAN PAPILLOMA VIRUS (HPV) Routine 01/18/2024 2:22 PM CDT Screening for malignant neoplasm of cervix PATHOLOGY CYTOLOGY REAL ESTATE VALUER Routine 01/18/2024 2:22 PM CDT Screening for malignant neoplasm of cervix from Last 3 Months or Most Recently Relevant to Health Maintenance Results * ANTONIA SCREENING BILATERAL DIGITAL W CAD W OTIS (04/15/2024 12:31 PM CASHIER HOST/HOSTESS) Anatomical Region Laterality Modality breast Bilateral Mammography 04/15/2024 12:3 2 PM CASHIER HOST/HOSTESS Narrative 04/16/2024 2:04 PM CASHIER HOST/HOSTESS - ANTONIA SCREENING BILATERAL DIGITAL W CAD W OTIS BILATERAL DIGITAL SCREENING MAMMOGRAM 3D/2D WITH CAD WITH MEDIOLATERAL OBLIQUE CRANIOCAUDAL: 04/15/2024 The study was acquired using digital technology and interpreted from soft copy. Current study was also evaluated with The [employer] version 7.2. 2D digital mammographic views, as [...] exam. Electronically signed by: Madhuri funez/[email or web address]:04/15/2024 22:19:27 Car Repairer(s): RT Ana Luisa(Cathy)(M), [facility] letter sent: Normal Exam Reading location: [...] next screening exam. Electronically signed by: Madhuri Mckeon M.D. ll/[email or web address]:04/15/2024 22:19:27 Car Repairer(s): RT Ana Luisa(R)(M), [facility]: Normal Exam Reading location: [place] Mammogram BI-RADS: Category 2: Benign us Carlotta Mendenhall APRN, BARREL LATHE OPERATOR IMG MAMMO ORDERABLES Fin al Result * PATHOLOGY CYTOLOGY REAL ESTATE VALUER (01/18/2024 2:22 PM CDT) SPECIMEN ADEQUACY Satisfactory for evaluation. Endocervical/transf ormation zone component is present. 01/23/2024 3:00 PM CDT [facility] NEGATIVE FOR INTRAEPITHELIAL LESIONS OR MALIGNANCY. 01/23/2024 3:00 PM CDT [facility] at 1500 CDT Automated Examination Analysis of this sample has been assisted by an automated imaging and review system ([employer] Imaging System, [employer], [place], [place]). This case is further evaluated and finalized by a orthodontist assistant and/or pathologist. 01/23/2024 3:00 PM CDT [facility] Disclaimer The PAP smear is a screening [...] unless clinically indicated. 01/23/2024 3:00 PM CDT [facility] Case Report Gynecologic Cytology Report Case: [id number] Authorizing Provider: Carlotta Mendenhall APRN, CNP Collected: 01/18/2024 02:22 PM Ordering Location: [facility] - Received: 01/18/2024 02:22 PM Internal Medicine - [facility] Screen: Lucille Rivera Specimen: TP Screen, Cervix/Endocervix 01/23/2024 3:00 PM CDT [facility] Other CERVIX UTERI STRUCTURE / Unknown Non-Phlebotomy Collection / Unknown 01/18/2024 2:22 PM CDT 01/18/2024 2:22 PM CDT us Carlotta Mendenhall APRN, CNP PATHOLOGY/CYTOLOGY ORDER YOU Final Result [facility] [address] [place] [address], [place] * HUMAN PAPILLOMA VIRUS (HPV) (01/18/2024 2:22 PM CDT) HPV TYPE 16 NEGATIVE NEGATIVE 01/21/2024 7:47 PM CDT [facility] Comment: A negative high-risk HPV result does [...] 18 NEGATIVE NEGATIVE 01/21/2024 7:47 PM CDT [facility] Comment: A negative high-risk HPV result does [...] PCR NEGATIVE NEGATIVE 01/21/2024 7:47 PM CDT [facility] Comment: The following Other High Risk types [...] OR DIAGNOSTIC SCREENING 01/21/2024 7:47 PM CDT [facility] Other Non-Phlebotomy Collection / Unknown 01/18/2024 2:22 PM CDT 01/18/2024 2:22 PM CDT Narrative [facility] - 01/21/2024 7:47 PM CDT This test was performed using LUCILLE 5800 Real Time PCR. us Carlotta Mendenhall ADJUSTO WRITER OPERATOR, BARREL LATHE OPERATOR LAB SEND OUTS Final Re sult [facility] [address] [place] [address], [place] [facility] [place] [address] from Last 3 Months or Most Recently Relevant to Health Maintenance Insurance Care Teams Parts Specialist Relationship Specialty Start Date End Date Harry Landaverde MD PCP - General Internal Medicine 07/20/22
[2025-01-24 19:33] VITALS: BP 169/89
[2025-01-24] MEDS: IPRATROPIUM BR 0.02% INH SOLN 0.5 MG/2.5 ML VIAL INHALATION (19:41)
[2025-01-24] MEDS: ALBUTEROL SULFATE NEB 2.5 MG/3 ML INH INHALATION (19:41)
--- NOTE | 2025-01-24 19:46 | ED_ITS ---
HPI - URI/Sore Throat General Chief Complaint: Upper Respiratory Infection Stated Complaint: sinus, cough Time Seen by Provider: 01/24/25 19:30 Source: patient and RN notes reviewed Mode of arrival: ambulatory Limitations: no limitations History of Present Illness HPI Narrative: Patient presents today complaining of a 7 day history of nasal congestion and postnasal drip with a productive cough that started 2 days ago. Denies fever, shortness of breath, but states it is difficult to catch her breath due to excessive coughing episodes. Denies history of asthma or COPD. She has been taking allergy and cold and flu medication without much relief. Patient smokes Related Data Home Medications ?Medication ?Instructions ?Recorded ?Confirmed ?Last Taken ?Type celecoxib 200 mg capsule mg 01/13/25 Unknown History escitalopram oxalate 10 mg tablet mg 01/13/25 Unknown History hydroxyzine HCl 10 mg tablet mg 01/13/25 Unknown Hist ory phentermine 30 mg capsule mg 01/24/25 Unknown History Allergies Allergy/AdvReac Type Severity Reaction Status Date / Time No Known Allergies Allergy Verified 01/24/25 19:36 [facility] Comments At time of signature, I have reviewed and agree with nursing past medical, surgical, social and family history unless otherwise noted. Please see nursing chart for further information. There is no relevant family history pertinent to the presenting complaint Exam Narrative: GENERAL: Mildly ill-appearing, well-nourished HEAD: Normocephalic, atraumatic. EYES: EOMI. No redness or drainage. Conjunctivae normal. ENT: Mucous membranes pink and moist. Nares clear. No rhinorrhea. TMs normal bilaterally. Throat normal. Uvula midline. NECK: Normal AROM. Supple. No lymphadenopathy. CHEST: No respiratory distress. Inspiratory and expiratory wheezing throughout. Almost continuous coughing episodes. HEART: Regular rate and rhythm. No murmur appreciated. EXTREMITIES: Normal range of motion. No edema. SKIN: Warm, dry, no rash. Capillary refill normal. Normal skin turgor. NEURO: No focal deficits. Alert and oriented x3. Gait steady. PSYCH: Normal affect. No signs of depression or anxiety. Course Course Emergency Course: 1999- During Du[place], patient's cough slowed down. After finished, wheezing has slightly improved. No crackling noted. Patient's breathing is not labored. Her cough is now productive. Level of Care: Express Care Visit Vital Signs Vital signs: Vital Signs Temperature 97.5 F L 01/24/25 19:27 Pulse Rate 100 01/24/25 19:27 Respiratory Rate 20 01/24/25 19:27 Blood Pressure 192/94 H 01/24/25 19:27 Pulse Oximetry 97 01/24/25 19:27 Oxygen Delivery Room Air 01/24/25 19:27 Temperature 97.5 F L 01/24/25 19:27 Pulse Rate 100 01/24/25 19:27 Respiratory Rate 20 01/24/25 19:27 Blood Pressure 169/89 H 01/24/25 19:33 Pulse Oximetry 97 01/24/25 19:27 Oxygen Delivery Room Air 01/24/25 19:27 Reviewed MDM - URI/Sore Throat MDM Narrative Medical decision making narrative: 39-year-old otherwise healthy female patient presents today with a 7 day history of nasal congestion and 2 day history of cough. She denies fever or shortness of breath cough has been fairly continuous. She has tried allergy medicine and cold and flu medication without improvement. Upon exam, patient is coughing continuously with inspiratory and expiratory wheezes throughout upon aus cultation. COVID and influenza negative. Patient received a DuoNeb, which has helped improve her wheezing somewhat. She also received an IM dose of dexamethasone. Due to her wheezing and severe coughing, patient will be treated possible bacterial bronchitis Augmentin as well as prednisone, albuterol, and Tessalon Perles. Patient agrees plan. Anticipatory guidance and ED precautions given. Differential Diagnosis Differential diagnosis: Likely upper respiratory infection, sinusitis, viral infection, bronchitis, influenza and other (Pneumonia, COVID) Lab Data Attestation: I reviewed the patient's lab results. Lab results narrative: Influenza and COVID negative Labs: Lab Results 01/24/25 Range/Units 19:47 POC Influenza A Ag Negative (Negative) POC Influenza B Ag Negative (Negative) POC SARS CoV-2 Ag Negative (Negative) Critical Care Time Critical Care Time Critical Care Time: No Discharge Plan Discharge Clinical Impression: Bronchitis Patient Disposition: Home Condition: Stable Instructions: Antibiotic Form, Acute Bronchitis (ED) Additional Instructions: Please take all medications as prescribed. Start the prednisone tomorrow afternoon as you have been given your 1st dose of steroids in an injection today. Follow-up with your PCP next week if symptoms are not improving. Go to the ER immediately if symptoms worsen to include development of new fever g reater than 100.3, shortness of breath, or chest pain. Your blood pressure was elevated above 120/80 today at Urgent Care. This puts you above the threshold for follow up. Please schedule a followup visit with your personal physician as soon as possible, for further evaluation and treatment. Even blood pressure exceeding 120/80 may indicate pre-hypertension. Patient Language: Egyptian Prescriptions: New benzonatate 200 mg capsule 200 mg PO TID PRN (Reason: cough) Qty: 20 0RF prednisone 50 mg tablet 50 mg PO DAILY 5 Days Qty: 5 0RF albuterol sulfate 90 mcg/actuation HFA aerosol inhaler 2 inh inhalation Q4-6H PRN (Reason: shortness of breath or wheezing) Qty: 8.5 0RF amoxicillin-pot clavulanate 875-125 mg tablet 1 tablet PO Q12H 7 Days Qty: 14 0RF (DME) [employer] MDI Spacer Spacer See Rx Instructions .ROUTE .MEDSUPPLY Qty: 1 0RF Rx Instructions: As directed No Action celecoxib 200 mg capsule hydroxyzine HCl 10 mg tablet escitalopram oxalate 10 mg tablet phentermine 30 mg capsule Follow-up/Referrals: Akhil,Harry Corado MD [Primary Care Provider, Unknown] Time of Disposition: 20:06
[2025-01-24 19:49] LABS: EDCOVIDSCREEN Negative (Negative); EDINFLUASCREEN Negative (Negative); EDINFLUBSCREEN Negative (Negative)
[2025-01-24] MEDS: dexAMETHasone SOD PHOS INJ 10 MG/ML 1 ML VIAL IM (19:50)
== END 2025-01-24 20:13 | disposition home or self-care (01) ==
PROVIDERS: Emergency Provider Nurse Practitioner; PCP Internal Medicine
DX: J40 Bronchitis, not specified as acute or chronic (principal); Z20.822 Contact with and (suspected) exposure to COVID-19; M19.90 Unspecified osteoarthritis, unspecified site; F41.9 Anxiety disorder, unspecified
CPT/HCPCS: 87426; 87804; 94640; 96372; 99213; G0463; J1100